=== PATIENT | female | born 1960 | race Caucasian/White ===

== ENCOUNTER 2017-01-30 07:13 | Day surgery (SDC) | payer OTHER ==
[2017-01-28 13:24] VITALS: BMI 25.4
[2017-01-30] MEDS ORDERED: PROPOFOL 20 ML ONE ×3 (08:01)
[2017-01-30] MEDS ORDERED: LIDOCAINE HCL/PF 2% SDV 5ML VIAL ONE (08:01)
[2017-01-30 08:35] VITALS: TEMP 98
[2017-01-30 15:40] VITALS: BP 131/90; PULSE 68
--- NOTE | 2017-02-02 14:10 | PATH ---
Surgical Pathology Report Patient Name: CAMILLE CARMONA [facility]. Rec. #: [id number] /Age/Gender: 1960 (Age: 56) / F Account: [id number] Location: [facility]-ENDOS[facility] Taken: 01/30/2017 Received: 01/30/2017 Reported: 02/02/2017 Physicians: Jose Groves M.D. Specimen(s) Received A: BX ANTRUM B: BX BODY C: BX DISTAL ESOPHAGUS Clinical History GERD Site of hernia, bile reflux in stomach and esophagus, inlet patch esophagus, gastritis Final Diagnosis A. STOMACH, ANTRUM, BIOPSY: REACTIVE GASTROPATHY. IMMUNOSTAIN FOR H. PYLORI IS NEGATIVE. B. STOMACH, BODY, BIOPSY: GASTRIC MUCOSA WITH NO PATHOLOGIC CHANGES. IMMUNOSTAIN FOR H. PYLORI IS NEGATIVE. C. DISTAL ESOPHAGUS, BIOPSY: SQUAMOUS MUCOSA WITH NO PATHOLOGIC CHANGES. NO INTESTINAL METAPLASIA IDENTIFIED (NO SHAVER'S IDENTIFIED). Electronically Signed Guillaume Swanson M.D. Gross Description A. Received in formalin, labeled "antrum" is a single fragment of fink tissue measuring 0.4 cm. in greatest dimension. The specimen is submitted in toto in one cassette. B. Received in formalin, labeled "body" is a fink, irregular portion of soft tissue measuring 0.4 cm. in greatest dimension. The specimen is submitted in toto in one cassette. C. Received in formalin, labeled "distal esophagus" are 2 fragment of fink-white tissue measuring 0.2 and 0.3 cm. in greatest dimension. The specimen is submitted in toto in one cassette. AF/01/30/2017 final/01/30/2017
== END 2017-01-30 10:05 | disposition home or self-care (01) ==
LOC: JASU-ENDO 07:13
PROVIDERS: ATTEND Internal Medicine Gastroenterology
PROC: 0DB58ZX Excision of Esophagus, Via Natural or Artificial Opening Endoscopic, Diagnostic (ICD-10-PCS; 2017-01-30)
PROC: 0DB68ZX Excision of Stomach, Via Natural or Artificial Opening Endoscopic, Diagnostic (ICD-10-PCS; principal; 2017-01-30 08:00)
DX: K29.70 Gastritis, unspecified, without bleeding (principal); K44.9 Diaphragmatic hernia without obstruction or gangrene; K21.9 Gastro-esophageal reflux disease without esophagitis
CPT/HCPCS: 88305-TC; 88342-TC